=== PATIENT | female | born 1930 | race Caucasian/White ===

== ENCOUNTER 2019-05-21 20:16 | Emergency (ER) | payer OTHER ==
[~2019-05-21] VITALS: Ht 162.6 cm; Wt 47.2 kg
[2019-05-21 20:27] VITALS: Ht 162.6 cm; Wt 47.2 kg
[2019-05-21 22:33] VITALS: BP 170/81
== END 2019-05-21 22:33 | disposition home or self-care (01) ==
LOC: ED 20:16
DX: F03.90 Unspecified dementia, unspecified severity, without behavioral disturbance, psychotic disturbance, mood disturbance, and anxiety (principal); F41.9 Anxiety disorder, unspecified; I10 Essential (primary) hypertension